=== PATIENT | male | born 1990 | race Caucasian/White ===

== ENCOUNTER 2018-01-13 17:14 | Day surgery (SDC) | payer OTHER ==
[~2018-01-13] VITALS: Ht 172.7 cm; Wt 96.9 kg
[~2018-01-13 17:14] MED LIST: LIDOCAINE20 MG/1 M5 PO; NAPROSYN500 MG PO; NORCO 5/3251 TABLET PO; PEN-VEE K,VEET500 MG PO
[2018-01-13 17:40] LABS: HEMATOCRIT 41.7 % (38.0-50.0); MCH 31.1 PG (29.0-34.0); MCV 86.3 FL (86-99); PLATELET COUNT 216 K/uL (156-360); RBC DIS.WIDTH-CV 12.4 % (11.8-14.6); RBC DIS.WIDTH-SD 39.3 % (39-53); RED BLOOD COUNT 4.83 M/uL (4.00-5.50); WHITE BLOOD COUNT 8.1 K/uL (4.1-10.2)
[2018-01-13 17:50] LABS: ALBUMIN 4.3 g/dL (3.2-4.8); CHLORIDE 105 mEq/L (99-109); POTASSIUM 3.6 mEq/L (3.7-5.4); SODIUM 141 mEq/L (136-147)
[2018-01-13 17:53] LABS: GLUCOSE 114 mg/dL (70-99); TOTAL PROTEIN 7.2 g/dL (6.4-8.3)
[2018-01-13 17:55] LABS: TOTAL BILIRUBIN 0.6 mg/dL (0.0-1.0)
[2018-01-13 17:56] LABS: ALKALINE PHOSPHATASE 88 IU/L (3-129); CREATININE 1.2 mg/dL (0.6-1.3); GFR ESTIMATE (CALCULATED) > 59 mL/min/ (58.99-99999)
[2018-01-13 17:57] LABS: UREA NITROGEN (BUN) 14 mg/dL (9-23)
[2018-01-13 17:58] LABS: AST (GOT) 21 IU/L (2-34)
[2018-01-13 17:59] LABS: ALT (GPT) 24 IU/L (3-49)
[2018-01-13 20:26] LABS: APPEARANCE CLEAR ((CLEAR)); BILIRUBIN NEGATIVE; BLOOD NEGATIVE; COLOR YELLOW ((YELLOW)); GLUCOSE (STRIP) NEGATIVE; KETONES NEGATIVE; LEUKOCYTES NEGATIVE; NITRITE NEGATIVE; PROTEIN (STRIP) NEGATIVE; SPECIFIC GRAVITY 1.031 (1.000-1.030); UCUL ADDED? NO; UROBILINOGEN 0.2 MG/DL (0.2-1.0)
[2018-01-13] MEDS ORDERED: OXAYDO5 MG PO (22:22)
[2018-01-13 23:28] VITALS: BP 137/74
[2018-01-14 04:15] VITALS: BP 111/57
[2018-01-14 08:15] VITALS: BP 109/58
== END 2018-01-14 10:02 | disposition home or self-care (01) ==
LOC: EME 17:14 → SDC 21:04 → EME 21:04 → 2SOUTH 22:15 → SDC 22:15 → ENRESERV 22:17 → 2EASTP 23:08
PROVIDERS: Physician Assistant Medical
PROC: 0DTJ4ZZ Resection of Appendix, Percutaneous Endoscopic Approach (ICD-10-PCS; principal; 2018-01-13)
DX: K35.80 Unspecified acute appendicitis (principal); F17.200 Nicotine dependence, unspecified, uncomplicated
CPT/HCPCS: 74177; 80053; 81003; 85027; 88304; 99281; 99284; G0378; J0330; J0696; J1170; J1885; J2250; J3010; J7030; S0030; S0074